=== PATIENT | female | born 1945 | race Caucasian/White ===

== ENCOUNTER 2020-10-18 23:15 | Emergency (ER) | payer MEDICARE, OTHER ==
[~2020-10-18] VITALS: Ht 152.4 cm; Wt 74.8 kg
[2020-10-18 23:25] VITALS: BP 149/65
--- NOTE | 2020-10-18 23:33 | ED Lower Extremity ---
General Chief Complaint: Trauma-Non Activation Stated Complaint: FALL INJURED RIGHT LEG History of Present Illness Date Seen by Provider: October 18, 2020 Time Seen by Provider: 23:29 Initial Comments 75-year-old female presents with right ankle pain. She reports that she slipped on the wet floor and fell around 5 PM this evening. Patient presents because hurts when she walks. She is able to bear weight. She also thinks she strained the inside of her right groin. She reports no other injuries. Allergies and Home Medications Allergies Coded Allergies: Sulfa (Sulfonamide Antibiotics) (Verified Allergy, Unknown, 10/18/20) Patient Home Medication List Home Medication List Reviewed: Yes Review of Systems Constitutional: No chills, No fever Respiratory: no symptoms reported Cardiovascular: no symptoms reported Gastrointestinal: no symptoms reported Musculoskeletal: see HPI Skin: no symptoms reported Past [id number]-[id number] Hx Past Med/Social Hx: Reviewed Nursing Past Med/Soc Hx Physical Exam Vital Signs Vital Signs - First Documented 10/18/20 23:25 Temp 36.7 Pulse 74 Resp 16 B/P (MAP) 149/65 (93) O2 Delivery Room Air Capillary Refill : Height, Weight, BMI Height: '" Weight: lbs. oz. kg; BMI Method: General Appearance: no apparent distress Neck: full range of motion Cardiovascular: normal peripheral pulses, regular rate, rhythm Respiratory: lungs clear, normal breath sounds Gastrointestinal: non tender, soft Hips: bilateral hip non-tender Legs: bilateral leg normal range of motion; right leg soft tissue tenderness (Right groin) Knees: bilateral knee non-tender, bilateral knee normal range of motion Ankles: right ankle soft tissue tenderness, right ankle swelling Neurologic/Psychiatric: alert, normal mood/affect Progress/Results/Core Measures Results/Orders My Orders Orders - LANDY TABARES DO Ankle 3 View Right (10/18/20 23:33) Hermes Bandage (10/18/20 23:47) Vital Signs/I&O 10/18/20 23:25 Temp 36.7 Pulse 74 Resp 16 B/P (MAP) 149/65 (93) O2 Delivery Room Air Progress Progress Note : Progress Note Patient with no acute fracture on x-ray. Patient with a right ankle sprain. We will put an Hermes wrap on it. Patient should use Tylenol ibuprofen and ice as needed. She will be discharged home in stable condition Diagnostic Imaging Diagonstic Imaging: Xray Plain Films/CT/US/NM/MRI: ankle Comments No acute fracture Reviewed: Reviewed by Me Departure Impression Primary Impression: Sprain of ankle, right Qualified Codes: S93.401A - Sprain of unspecified ligament of right ankle, initial encounter Disposition: HOME, SELF-CARE Condition: Stable Departure-Patient Inst. Referrals: SELF,SOLEDAD SYED (PCP/Family) Primary Care Physician Patient Instructions: Using Cold for Pain, Ankle Sprain, Foot Sprain (DC) Add. Discharge Instructions: Tylenol or ibuprofen as needed for pain Ice to affected area couple times a day All discharge instructions reviewed with patient and/or family. Voiced understanding. LANDY TABARES DO October 18, 2020 23:33
--- NOTE | 2020-10-19 07:32 | Diagnostic Imaging Report ---
INDICATION: Slipped and fell. Ankle pain. EXAMINATION: Right ankle 10/18/2020 FINDINGS: 3 views ankle There is soft tissue swelling about the ankle more pronounced laterally. No displaced fractures identified. No dislocations. Talar dome unremarkable. IMPRESSION: 1. Soft tissue swelling with no fractures identified. Dictated by: Dictated on workstation # [id number]
== END 2020-10-19 | disposition home or self-care (01) ==
LOC: EDUNIT# 23:15 → ER FS 23:19
DX: S93.401A Sprain of unspecified ligament of right ankle, initial encounter (principal); W01.0XXA Fall on same level from slipping, tripping and stumbling without subsequent striking against object, initial encounter
CPT/HCPCS: 73610